=== PATIENT | female | born 1975 | race Caucasian/White ===

== ENCOUNTER → 2018-01-20 11:56 | Outpatient (CLI) | payer OTHER, SELFPAY ==
[2018-01-26 13:11] LABS: HPV Reflexed? NOT INDICATED
== END ==
PROVIDERS: Visit Provider Obstetrics & Gynecology
DX: Z12.4 Encounter for screening for malignant neoplasm of cervix (principal)
CPT/HCPCS: 88175; G0145

== ENCOUNTER → 2018-09-04 14:31 | Outpatient (CLI) | payer OTHER, SELFPAY ==
[2018-09-04 15:54] LABS: Hematocrit 44.6 % (37-47); Hemoglobin 14.6 g/dl (12.0-15.0); Mean Corp Hgb Conc 32.7 g/gl (32-36); Mean Corpuscular Hgb 31.7 pg (27.0-32.0); Mean Platelet Vol. 10.2 fl (6.2-12.0); Platelet Count 213 K/mm3 (150-450); RBC Distribution Width SD 42.3 fl (35.1-43.9); White Blood Count 6.9 K/mm3 (4.4-11.0)
[2018-09-04 16:05] LABS: Follicle Stimulating Hormone 26.6 mIU/mL; T4 Free Direct 0.87 ng/dL (0.76-1.46); Thyroid Stim Hormone (TSH) 1.84 uIU/mL (0.358-3.74)
[2018-09-04 16:13] LABS: Scan Indicated on CBC? Y/N NO
[2018-09-06 11:50] LABS: Thyroid Peroxidase AB 30 IU/mL (0-34)
== END ==
PROVIDERS: Visit Provider Obstetrics & Gynecology
DX: N92.5 Other specified irregular menstruation (principal)
CPT/HCPCS: 36415; 83001; 84146; 84439; 84443; 85027; 86376

== ENCOUNTER → 2019-01-29 15:54 | Outpatient (CLI) | payer OTHER, SELFPAY ==
[2019-02-02 16:25] LABS: HPV Reflexed? NOT INDICATED
== END ==
PROVIDERS: Visit Provider Obstetrics & Gynecology
DX: Z12.4 Encounter for screening for malignant neoplasm of cervix (principal)
CPT/HCPCS: 88175; G0145

== ENCOUNTER → 2020-03-20 16:41 | Outpatient (CLI) | payer OTHER, SELFPAY ==
[2020-03-25 20:55] LABS: HPV APTIMA, High Risk Negative (Negative)
[2020-03-25 20:56] LABS: HPV Reflexed? YES, CHARGE PATIENT
== END ==
PROVIDERS: Visit Provider Student in an Organized Health Care Education/Training Program
DX: Z12.4 Encounter for screening for malignant neoplasm of cervix (principal)
CPT/HCPCS: 87624; 88175; G0145

== ENCOUNTER → 2021-06-15 | Outpatient (CLI) | payer OTHER, SELFPAY ==
[2021-06-19 13:37] LABS: HPV APTIMA, High Risk Negative (Negative)
== END | disposition home or self-care (01) ==
LOC: LABSPEC 16:37
PROVIDERS: Visit Provider Student in an Organized Health Care Education/Training Program
DX: Z12.4 Encounter for screening for malignant neoplasm of cervix (principal)
CPT/HCPCS: 87624; 88175; G0145

== ENCOUNTER → 2022-06-21 | Outpatient (CLI) | payer OTHER, SELFPAY ==
[2022-06-21 18:10] LABS: Follicle Stimulating Hormone 72.8 mIU/mL; Luteinizing Hormone 40.6 mIU/mL
[2022-06-28 17:35] LABS: HPV APTIMA, High Risk Negative (Negative)
== END | disposition home or self-care (01) ==
LOC: WOBLAB 16:54
PROVIDERS: Visit Provider Student in an Organized Health Care Education/Training Program
DX: Z12.4 Encounter for screening for malignant neoplasm of cervix (principal); N95.8 Other specified menopausal and perimenopausal disorders
CPT/HCPCS: 36415; 83001; 83002; 87624; 88175; G0145

== ENCOUNTER → 2022-07-14 | Outpatient (CLI) | payer OTHER, SELFPAY ==
--- NOTE | 2022-07-14 | EMB_PTH ---
PATIENT: MELINDA BLOOD LOC: [facility] U#:[id number] AGE/SX: 46/F ROOM: RE07/14/[address]: Dr. Teri Powers, : 1975 BED: DIS: 07/14/2022 SPEC #: [id number] RECD: 07/14/22 10:17 STATUS: CRISELDA BRYAN #: [id number] AGAPIOT: 07/14/22 00:[address]: Teri Powers DEPT: SURGICAL PATHOLOGY RECD BY: Elvira Edwards Tissues: Endometrium, NOS Procedures: Surgery Specimen Level IV HEADER OPERATION: Endometrial biopsy PRE-OP DIAGNOSIS: Abnormal uterine bleeding TISSUE SUBMITTED: Endometrial biopsy MICROSCOPIC DIAGNOSIS Endometrium, biopsy: Scant strips of benign glandular mucosa. See comment. AM:violetta 07/15/2022 COMMENT The specimen primarily consists of mucous material. Clinical correlation is suggested. MICROSCOPIC DESCRIPTION Slides are reviewed. GROSS DESCRIPTION Received is one container labeled with the patient's name and not further designated. The specimen consists of multiple irregular fragments of joseph mucoid tissue that in aggregate measure 1.5 x 1 x 0.1 cm. The specimen is totally submitted in one cassette. / SJ:violetta 07/14/2022 TC:5 CPT: 12168
== END | disposition home or self-care (01) ==
LOC: LABSPEC 10:01
PROVIDERS: Visit Provider Student in an Organized Health Care Education/Training Program
DX: N93.9 Abnormal uterine and vaginal bleeding, unspecified (principal)
CPT/HCPCS: 88305